=== PATIENT | female | born 1990 | race Caucasian/White ===

== ENCOUNTER 2022-01-11 11:41 | Emergency (ER) | payer OTHER ==
[~2022-01-11] VITALS: Ht 162.6 cm; Wt 97.1 kg
[~2022-01-11 11:41] MED LIST: DULO60EC1 PO; KEP500 PO; LEVO0.124 PO; PREG300C PO; [UNRECOGNIZED DRUG - CODE] PO; [UNRECOGNIZED DRUG - CODE] PO
[2022-01-11 12:02] VITALS: BP 103/65
--- NOTE | 2022-01-11 12:31 | NUR ---
BIB SELF C/O WEAKNESS, 9/10 BODY ACHES, NAUSEA, GENAO X 2 DAYS. PMH: FIBROMYALGIA
--- NOTE | 2022-01-11 16:05 | NUR ---
PT AMB TO ER BED 5
--- NOTE | 2022-01-11 16:17 | NUR ---
Dr. Singletary evaluating patient at bedside.
[2022-01-11] MEDS ORDERED: MORPHINE SULFATE 4 MG/ML SYR IM ONE (16:35)
[2022-01-11] MEDS ORDERED: KETOROLAC 30 MG/ML VIAL IM ONE (16:35)
[2022-01-11] MEDS ORDERED: ONDANSETRON 4 MG ODT PO ONE (16:35)
--- NOTE | 2022-01-11 16:58 | NUR ---
Lab at bedside.
--- NOTE | 2022-01-11 17:00 | NUR ---
31 y/o female with c/o body pain, nausea and weakness x yesterday. Per patient, she is also lightheaded. Patient denies any sick contacts. Patient took [place] today for pain. Patient denies any fever, chills or SOB. Medical History: Fibromyalgia, Depression, Anxiety, Zach's NKDA
[2022-01-11 17:27] LABS: BASOPHILS % (AUTO) 0.5 % (0.0-2.0); EOSINOPHILS % (AUTO) 0.7 % (0.0-4.0); HEMATOCRIT 35.4 % (36-48); HEMOGLOBIN 11.3 g/dL (12.0-16.0); LYMPHOCYTES # (AUTO) 1.5 K/uL (2.5-16.5); MEAN CORPUSCULAR HEMOGLOBIN 22 pg (27-31); MEAN CORPUSCULAR HGB CONC 32 g/dL (33-37); MEAN CORPUSCULAR VOLUME 70.6 fL (80-94); MONOCYTES # (AUTO) 0.3 K/uL (0.8-1.0); MONOCYTES % (AUTO) 4.8 % (1.7-9.3); NEUTROPHILS # (AUTO) 5.2 K/uL (1.8-7.7); PLATELET COUNT (AUTO) 357 K/uL (140-450); RED BLOOD CELL COUNT(AUTO) 5.02 MIL/uL (4.20-5.40); RED CELL DISTRIBUTION WIDTH 16.6 % (11.6-13.7); WHITE BLOOD COUNT (AUTO) 7.2 K/uL (4.8-10.8)
[2022-01-11 17:50] LABS: ALBUMIN 3.6 g/dL (3.4-5.0); CARBON DIOXIDE 28.4 mmol/L (21-32); POTASSIUM 4.4 mmol/L (3.5-5.1); TOTAL BILIRUBIN 0.4 mg/dL (0.0-1.0)
[2022-01-11 18:30] VITALS: BP 126/78
--- NOTE | 2022-01-11 18:30 | NUR ---
Patient discharged with v/s stable. Written and verbal after care instructions given and explained. Patient verbalized understanding. Ambulatory with steady gait. All questions addressed prior to discharge. Advised to follow up with PMD.
== END 2022-01-11 18:30 | disposition home or self-care (01) ==
LOC: MED 11:41
DX: M79.7 Fibromyalgia (principal); Z20.822 Contact with and (suspected) exposure to COVID-19; M79.10 Myalgia, unspecified site; R42 Dizziness and giddiness; R10.9 Unspecified abdominal pain; R11.0 Nausea; R53.83 Other fatigue; Z79.899 Other long term (current) drug therapy
CPT/HCPCS: 36415; 71045; 80053; 81002; 81025; 82550; 85025; 87426; 87804; 96372; 99284; J1885; J2270; Q0092; Q0162

== ENCOUNTER 2022-01-12 08:56 | Emergency (ER) | payer OTHER ==
[~2022-01-12] VITALS: Ht 162.6 cm; Wt 97.1 kg
[2022-01-12 08:59] VITALS: BP 140/69
--- NOTE | 2022-01-12 09:00 | NUR ---
Pt EVE via gurney to bed 11.
[2022-01-12] MEDS ORDERED: MORPHINE SULFATE 4 MG/ML SYR IVP ONE (09:15)
[2022-01-12] MEDS ORDERED: KETOROLAC 30 MG/ML VIAL IVP ONE (09:15)
[2022-01-12] MEDS ORDERED: ONDANSETRON 4 MG/2 ML VIAL IVP ONE (09:15)
--- NOTE | 2022-01-12 09:34 | NUR ---
PT AMBULATED TO RESTROOM WITH STEADY GAIT.
[2022-01-12 09:53] LABS: APPEARANCE,URINE CLEAR (CLEAR); BILIRUBIN,URINE NEGATIVE (NEGATIVE); BLOOD, URINE NEGATIVE (NEGATIVE); COLOR,URINE YELLOW (YELLOW); LEUKOCYTE ESTERASE ,URINE NEGATIVE (NEGATIVE); NITRITE, URINE NEGATIVE (NEGATIVE); UGLUCOSE NEGATIVE (NEGATIVE)
[2022-01-12 10:06] LABS: BARBITURATE, URINE NEGATIVE ng/ml (NEG <=200)
[2022-01-12 10:07] LABS: BENZODIAZEPINE, URINE NEGATIVE ng/mL (NEG <=200); CANNABINOID, URINE POSITIVE ng/mL (NEG <=50); COCAINE, URINE NEGATIVE ng/mL (NEG <=300); OPIATE, URINE POSITIVE ng/mL (NEG <=2000); PHENCYCLIDINE SCREEN,URINE POSITIVE ng/mL (NEG <=25)
[2022-01-12 10:10] LABS: BASOPHILS % (AUTO) 0.5 % (0.0-2.0); EOSINOPHILS # (AUTO) 0.1 K/uL (0-0.4); HEMATOCRIT 37.2 % (36-48); HEMOGLOBIN 11.6 g/dL (12.0-16.0); LYMPHOCYTES # (AUTO) 1.9 K/uL (2.5-16.5); LYMPHOCYTES % (AUTO) 26.8 % (20.5-51.1); MEAN CORPUSCULAR HEMOGLOBIN 22 pg (27-31); MEAN CORPUSCULAR HGB CONC 31 g/dL (33-37); MEAN CORPUSCULAR VOLUME 71.5 fL (80-94); MONOCYTES # (AUTO) 0.3 K/uL (0.8-1.0); MONOCYTES % (AUTO) 4.6 % (1.7-9.3); NEUTROPHILS # (AUTO) 4.8 K/uL (1.8-7.7); NEUTROPHILS % (AUTO) 67.1 % (42.2-75.2); PLATELET COUNT (AUTO) 349 K/uL (140-450); RED CELL DISTRIBUTION WIDTH 16.8 % (11.6-13.7); WHITE BLOOD COUNT (AUTO) 7.1 K/uL (4.8-10.8)
[2022-01-12 10:14] LABS: ALBUMIN 3.9 g/dL (3.4-5.0); ANION GAP 15.8 (8-16); CARBON DIOXIDE 29.4 mmol/L (21-32); CREATININE 1.1 mg/dL (0.6-1.3); MAGNESIUM 2.2 mg/dL (1.8-2.4); POTASSIUM 4.2 mmol/L (3.5-5.1); TOTAL BILIRUBIN 0.5 mg/dL (0.0-1.0)
[2022-01-12] MEDS ORDERED: HYDROmorphone 1 MG/ML AMP IVP ONE (11:25)
[2022-01-12 12:38] VITALS: BP 102/58
--- NOTE | 2022-01-12 12:38 | NUR ---
Patient discharged with v/s stable. Written and verbal after care instructions about muscle pain given and explained. Patient verbalized understanding. Ambulatory with steady gait. All questions addressed prior to discharge. Advised to follow up with PMD.
== END 2022-01-12 12:38 | disposition home or self-care (01) ==
LOC: MED 08:56
DX: M79.10 Myalgia, unspecified site (principal)
CPT/HCPCS: 36415; 80053; 80305; 81003; 81025; 83735; 85025; 96374; 96375; 99284; J1170; J1885; J2270; J2405

== ENCOUNTER 2023-01-12 23:45 | Emergency (ER) | payer OTHER ==
[~2023-01-12] VITALS: Ht 162.6 cm; Wt 102.1 kg
[~2023-01-12 23:45] MED LIST changes: +[UNRECOGNIZED DRUG - CODE] PO; -[UNRECOGNIZED DRUG - CODE] PO
[2023-01-12 23:50] VITALS: BP 140/74; PULSE 97; RESP 15; TEMP 98.8; O2SAT 98
[2023-01-13] MEDS ORDERED: KETOROLAC 30 MG/ML VIAL IVP ONE (00:50)
[2023-01-13] MEDS ORDERED: NACL 0.9% 1,000 ML IV ONE (00:50)
[2023-01-13] MEDS ORDERED: METOCLOPRAMIDE 10 MG/2 ML INJ VIAL IVP ONE (00:50)
[2023-01-13 01:17] LABS: BASOPHILS # (AUTO) 0.1 K/uL (0.00-0.22); BASOPHILS % (AUTO) 1.2 % (0.0-2.0); EOSINOPHILS # (AUTO) 0.4 K/uL (0-0.4); EOSINOPHILS % (AUTO) 4.5 % (0.0-4.0); HEMOGLOBIN 13.5 g/dL (12.0-16.0); LYMPHOCYTES # (AUTO) 2.4 K/uL (2.5-16.5); LYMPHOCYTES % (AUTO) 30.2 % (20.5-51.1); MEAN CORPUSCULAR HEMOGLOBIN 30 pg (27-31); MEAN CORPUSCULAR HGB CONC 36 g/dL (33-37); MEAN CORPUSCULAR VOLUME 83.8 fL (80-94); MONOCYTES # (AUTO) 0.6 K/uL (0.8-1.0); MONOCYTES % (AUTO) 7.1 % (1.7-9.3); NEUTROPHILS # (AUTO) 4.6 K/uL (1.8-7.7); PLATELET COUNT (AUTO) 233 K/uL (140-450); RED BLOOD CELL COUNT(AUTO) 4.54 MIL/uL (4.20-5.40); RED CELL DISTRIBUTION WIDTH 13.4 % (11.6-13.7); WHITE BLOOD COUNT (AUTO) 8.1 K/uL (4.8-10.8)
[2023-01-13 01:36] LABS: ALBUMIN 3.2 g/dL (3.4-5.0); ANION GAP 10.5 (8-16); CALCIUM 7.9 mg/dL (8.5-10.1); CARBON DIOXIDE 28.6 mmol/L (21-32); CREATININE 0.8 mg/dL (0.6-1.3); MAGNESIUM 1.8 mg/dL (1.8-2.4); PHOSPHORUS 3.5 mg/dL (2.5-4.9); POTASSIUM 4.1 mmol/L (3.5-5.1); TOTAL BILIRUBIN 0.2 mg/dL (0.0-1.0); TOTAL PROTEIN, SERUM 6.6 g/dL (6.4-8.2)
[2023-01-13] MEDS ORDERED: METOCLOPRAMIDE 10 MG/2 ML INJ VIAL ONE (01:51)
[2023-01-13 02:03] LABS: APPEARANCE,URINE CLEAR (CLEAR); BILIRUBIN,URINE NEGATIVE (NEGATIVE); BLOOD, URINE NEGATIVE (NEGATIVE); COLOR,URINE YELLOW (YELLOW); LEUKOCYTE ESTERASE ,URINE NEGATIVE (NEGATIVE); NITRITE, URINE NEGATIVE (NEGATIVE); PH,URINE 6.5 (5.0-9.0); PROTEIN,URINE NEGATIVE (NEGATIVE); UGLUCOSE NEGATIVE (NEGATIVE); UROBILINOGEN,URINE 0.2 EU/dL (0.2 - 1)
[2023-01-13] MEDS ORDERED: HYDROcodone/APAP 10/325 MG 1 TAB TAB PO ONE (02:40)
[2023-01-13] MEDS ORDERED: ONDA-188 SL (02:41)
== END 2023-01-13 03:23 | disposition home or self-care (01) ==
LOC: MED 01-13
DX: G40.909 Epilepsy, unspecified, not intractable, without status epilepticus (principal); A08.4 Viral intestinal infection, unspecified; Z79.899 Other long term (current) drug therapy
CPT/HCPCS: 36415; 71045; 80053; 81003; 81025; 82550; 83690; 83735; 84100; 84703; 85025; 96361; 96374; 96375; 99284; J1885; J2765; J7030; Q0092

== ENCOUNTER 2023-02-01 12:15 | Emergency (ER) | payer OTHER ==
[~2023-02-01] VITALS: Ht 165.1 cm; Wt 84.4 kg
[~2023-02-01 12:15] MED LIST changes: +ONDA-188 SL
[2023-02-01 12:17] VITALS: BP 118/82; PULSE 110; RESP 17; TEMP 97.4; O2SAT 98
[2023-02-01] MEDS ORDERED: ACETAMINOPHEN EXTRA STRENGTH 500 MG TAB PO ONE (13:45)
[2023-02-01] MEDS ORDERED: ONDANSETRON 4 MG ODT PO ONE (13:45)
[2023-02-01] MEDS ORDERED: ONDANSETRON 4 MG TAB PO ONE (14:10)
[2023-02-01] MEDS ORDERED: NACL 0.9% 1,000 ML IV ONE (15:25)
[2023-02-01] MEDS ORDERED: MORPHINE SULFATE 4 MG/ML SYR IVP ONE (15:25)
[2023-02-01] MEDS ORDERED: ONDANSETRON 4 MG/2 ML VIAL IVP ONE (15:25)
[2023-02-01 15:32] LABS: FLU A ANTIGEN negative (NEGATIVE); FLU B ANTIGEN NEGATIVE (NEGATIVE)
[2023-02-01] MEDS ORDERED: ONDA-188 SL (15:56)
[2023-02-01] MEDS ORDERED: ACET-8905 PO (16:10)
[2023-02-01 16:25] VITALS: BP 118/82; PULSE 98; RESP 17; TEMP 97.4; O2SAT 98
== END 2023-02-01 16:25 | disposition home or self-care (01) ==
LOC: MED 12:15
DX: A08.4 Viral intestinal infection, unspecified (principal); Z20.822 Contact with and (suspected) exposure to COVID-19; E03.9 Hypothyroidism, unspecified; Z79.899 Other long term (current) drug therapy
CPT/HCPCS: 71045; 81002; 81025; 87426; 87804; 96361; 96374; 96375; 99284; J2270; J2405; J7030; Q0162